=== PATIENT | male | born 1955 | race Caucasian/White ===

== ENCOUNTER → 2021-03-08 00:14 | Outpatient (CLI) | payer MEDICARE, SELFPAY ==
[2021-03-08 13:04] LABS: SARS-CoV-2 RNA PCR Negative
== END ==
PROVIDERS: PCP Internal Medicine Infectious Disease; Visit Provider Otolaryngology
DX: Z01.812 Encounter for preprocedural laboratory examination (principal); Z20.822 Contact with and (suspected) exposure to COVID-19
CPT/HCPCS: C9803; U0003; U0005

== ENCOUNTER 2021-03-11 01:09 | Day surgery (SDC) | payer MEDICARE, SELFPAY ==
--- NOTE | 2021-03-03 15:32 | PC.NURSE ---
Report to the Outpatient Waiting Room, entrance under the green pavilion located off [facility], at time __0600 on date ___03/11/21____. OR Time: . - You and your visitor will be asked a series of questions to screen for COVID 19 for your protection. - A mask is required within the hospital. - Only one visitor is allowed at this time. Patient visitors will be guided where to wait when not with patient. Preoperative COVID Testing Requirements: No COVID Test needed if: (proof is required; if not received patient will have Rapid Test prior to entry) - Patient has received COVID Vaccine at least 14 days prior to procedure date or - Patient has positive COVID test result within last 90 days of surgery date. COVID TESTING 03/08/21 AT 0935 COVID Test needed if above criteria is not met If not COVID vaccinated a COVID test must be conducted within 72 hours of surgery and patient is asked to isolate self from time of testing until procedure. You will go to the [facility] for your COVID testing. The [facility] site is located at the corner of [address] [facility]. You will only be called if COVID results are positive and your surgeon may reschedule your elective surgery date. Patients may have clear liquids (water, carbonated beverages, clear teas, apple juice) until 3 hours prior to surgery with a maximum of 20 ounces. - No food from midnight until time of surgery - Infants may have breast milk until 4 hours before surgery, infant formula 6 hours prior to surgery. - Children will be allowed to drink immediately following surgery. If applicable, please bring a bottle or sippy cup to assist with drinking. Juice, water, soda, and popsicles are readily available. For infants on formula, please bring formula the day of surgery. Pacifiers are allowed. Take the following medications with a SIP of water the morning of surgery: __AMLODIPINE Medications to discontinue per physician ____ASPIRIN PER DR MILLS Date to take last dose Please no make-up, nail [facility] [place], hairspray, perfume, deodorant, or body powder the day of surgery. No jewelry (including any body piercings) or valuables the day of surgery, leave them at home. Please take a shower or bath the night before, or the morning of, surgery with an antibacterial soap. Wear comfortable, loose fitting clothing. Children are encouraged to wear pajamas. - Jewelry must be removed prior to entering the operating room. Rings and piercings that are not removed may be cut off. - The hospital will not accept responsibility for valuables. - Please leave all valuables, including medications, at home the day of surgery. If you are going home after surgery, a licensed deliver driver must drive you home. - NO public transportation without another adult. - We recommend that an adult stay with you for 24 hours following discharge. - We also recommend that you do not drive, make important decision, drink alcoholic beverages, or take any drugs that were not prescribed by your health care provider for at least 24 hours after your discharge time. For Pediatric surgeries, we recommend two adults accompany the child home (only one inside the building at this time). Follow any additional instructions given to you from your surgeon. Telephone instructions given to ___PATIENT and asked if any additional questions and then verbalized understanding. Patient advised to call surgeon office or pre surgery nurse liaison [phone] if any additional questions.
[2021-03-03 15:44] VITALS: BMI 34.9
--- NOTE | 2021-03-10 16:46 | PM.IMHP ---
H&P: HPI History of Present Illness Date/Time: 03/10/21 16:46 Chief Complaint: Nasal polyps chronic sinusitis acute sinusitis septal deviation inferior turbinate hypertrophy nasal obstruction nasal congestion Narrative: patient presents for planned surgical procedures no change in symptoms no change in history Review of Systems Constitutional: Constitutional: Denies fatigue, Denies fever(s) and Denies lethargy Eyes: Eyes: Denies blurry vision and Denies change in vision ENT: Reports as per HPI Cardiovascular: Cardiovascular: Denies chest pain Respiratory: Respiratory: Denies cough Endocrine: Endocrine: Denies fatigue Hematologic/Lymphatic: Hematologic/Lymphatic: Denies easy bleeding, Denies easy bruising and Denies lymphadenopathy Allergic/Immunologic: Allergic/Immunologic: Denies seasonal rhinorrhea [facility] Past Medical History Medical History Heart disease Pacemaker Surgical History Surgical History Hx of adenoidectomy Family History Family History Father Hypertension Heart disease Social History Social History Smoking packs per day: 1 Smoking cigarettes per day: 20.0 Years smoked: 30 Smoking pack-years: 30.00 Smoking status: Former smoker Tobacco type: cigarettes Smoking end date: 02/08/05 Alcohol intake: current Drinks per week: 21 Substance use: never Spiritual care concerns: No Meds Home Medications and Allergies Home Medications Medication Instructions Recorded Confirmed Type amlodipine 5 mg tablet 5 mg PO DAILY 11/28/20 03/03/21 History aspirin 81 mg tablet,delayed 81 mg PO DAILY 11/28/20 03/03/21 History release losartan 100 mg tablet 100 mg PO DAILY 11/28/20 03/03/21 History omeprazole 20 mg capsule,delayed 20 mg PO DAILY 11/28/20 03/03/21 History release methylprednisolone 4 mg tablets in See Rx Instructions PO PER PKG DIR 03/05/21 Rx a dose pack #21 ea Allergies Allergy/AdvReac Type Severity Reaction Status Date / Time No Known Allergies Allergy Verified 03/03/21 15:16 Exam Const: General: cooperative, healthy appearing, comfortable, well developed and alert HENMT: Head: normal to inspection, normocephalic and atraumatic Ears: hearing grossly normal bilaterally, external ears normal, TM's normal bilaterally and EAC's normal General nose exam: Normal external nose present, Normal nares present, No nasal polyps present and Other nasal findings present ( turbinate hypertrophy septal deviation) Face and sinus: normal facial exam Mouth: Yes Normal oral and palatal mucosa present, Yes lip normal, Yes tongue normal, Yes oropharynx normal and Yes moist mucous membranes Teeth and gingiva: dentition normal and gingiva normal Throat: posterior oropharynx normal, tonsils normal and uvula midline Eyes: General: appearance normal, both eyes and all related structures Periorbital: periorbital findings normal Eyelids: eyelids normal Conjunctivae: conjunctivae normal Sclera: sclerae normal Neck: Neck: normal visual inspection, full ROM and no lymphadenopathy Thyroid: thyroid normal Lymphatic: no lymphadenopathy noted Resp: Effort & Inspection: normal respiratory effort and able to speak in complete sentences Cardio: Jugular venous distension: no JVD Neuro: Cranial nerves: Yes CN's II-XII intact bilaterally Assessment and Plan Assessment and plan (1) Chronic sinusitis: Code(s): J32.9 - Chronic sinusitis, unspecified Status: Acute Assessment and Plan: plan is for the operating image guided bilateral maxillary antrostomies image guided bilateral anterior ethmoidectomies image guided bilateral frontal sinusotomies endoscopic assisted septoplasty inferior turbinate reduction with outfracture. w
[2021-03-11] VITALS (9 sets, daily range): BP systolic 138–174; BP diastolic 80–110; PULSE 67–86; RESP 12–16; TEMP 36.1–36.2; O2SAT 96–100
[2021-03-11] MEDS: ACETAMINOPHEN 500 MG TABLET 1000 MG PO (06:17)
--- NOTE | 2021-03-11 06:48 | P.PNAN_ITS ---
Anes - Initial Pre Proc Eval Procedure: Operation Date: 03/11/21 07:30 Proposed Procedures p Image Guided Bilateral Maxillary Antrostomy, Bilateral Anterior Ethmoidectomy, Bilateral Frontal Sinusotomy, Bilateral Inferior Turbinectomy with Outfracture, - Roger Sage MD s Endoscopic Septoplasty - Roger Sage MD Date/Time: 03/11/21 06:48 Surgeon: Roger Sage MD Pre Op Diagnosis: chronic sinusitis Patient Data Age: 65 Gender: M Height: 1.75 m Weight: 108.3 kg Last Vital Signs Temp 36.2 C L 03/11/21 06:26 Pulse 85 03/11/21 06:26 Resp 16 03/11/21 06:26 BP 164/101 H 03/11/21 06:26 Pulse Ox 97 03/11/21 06:26 Allergies Allergy/AdvReac Type Severity Reaction Status Date / Time No Known Allergies Allergy Verified 03/11/21 06:07 Home Medications Medication Instructions Recorded Confirmed Type amlodipine 5 mg tablet 5 mg PO DAILY 11/28/20 03/11/21 History aspirin 81 mg tablet,delayed 81 mg PO DAILY 11/28/20 03/11/21 History release losartan 100 mg tablet 100 mg PO DAILY 11/28/20 03/11/21 History omeprazole 20 mg capsule,delayed 20 mg PO DAILY 11/28/20 03/11/21 History release Patient hx anesthesia problems: none Family hx anesthesia problems: none Results Review: All pre-operative results and documents have been reviewed as part of the pre-operative evaluation. [facility] Past Medical History Medical History (Updated 03/11/21 @ 06:48 by Capo Merchant MD) Heart disease Obesity Pacemaker Surgical History Surgical History Hx of adenoidectomy Family History Family History Father Hypertension Heart disease Social History Social History Smoking packs per day: 1 Smoking cigarettes per day: 20.0 Years smoked: 30 Smoking pack-years: 30.00 Smoking status: Former smoker Tobacco type: cigarettes Smoking end date: 02/08/05 Alcohol intake: current Drinks per week: 21 Substance use: never Living arrangements: with family Spiritual care concerns: No Anes - Eval Final PreProcedure Day of Procedure 03/11/21 06:48 Patient weight: obese Heart: regular rate and rhythm Lungs: clear to auscultation Airway: Mallampati scale class II Neurological: alert and oriented Last oral intake: >/= 8 hours ASA classification: III Emergent: no Anesthetic plan: proceed Anesthesia type and monitoring: general ETT and standard monitoring Results Review: All pre-operative results and documents have been reviewed as part of the pre-operative evaluation. Informed Consent: The patient's anesthetic plan and its attendant risks and benefits were discussed with the patient/family/POA. Questions were solicited and answers provided to the satisfaction of the patient/family/POA.
--- NOTE | 2021-03-11 07:18 | WPDHPUPDATE1 ---
History and Physical Update Update Date/Time: 03/11/21 07:18 History and Physical has been reviewed, including an updated exam of the patient. There are NO changes in the patient's condition. Risks, benefits, and alternatives have been discussed and questions answered. Patient agrees to proceed with procedure.
[2021-03-11] MEDS: LACTATED RINGERS 1,000 ML 30 ML IV CONT ×2 (07:24→09:46)
[2021-03-11] MEDS: ceFAZolin 2 GM/D5W 50 ML 2 GM/50 ML BAG IVPB (07:26)
[2021-03-11] MEDS: OXYMETAZOLINE HCL 0.05% NAS 15 ML BTL (*BKC) 1 SPRAY NASAL (07:53)
[2021-03-11] MEDS: MUPIROCIN 2% OINT 22 GM TUBE 1 APPLIC EACH NARE (09:21)
[2021-03-11] MEDS: LIDO 1%/EPINEPHRINE 1:100,000 50 ML VIAL 30 ML INFILTRATE (09:22)
--- NOTE | 2021-03-11 10:11 | P.OP_ITS ---
Procedure Note - Detailed Date of Procedure 03/11/21 Pre-op Diagnosis chronic sinusitis, right septal deviation and, inferior turbinate hypertrophy, nasal obstruction, nasal congestion, nasal polyps Post-op Diagnosis same Procedure Performed Endoscopic assisted septoplasty inferior turbinate reduction submucosally with outfracture bilateral middle turbinectomy bilateral image guided endoscopic maxillary antrostomies anterior ethmoidectomies frontal sinusotomies Surgeon Roger Sage MD Anesthesia general Indications See above Findings Polypoid type edema in all of the operated sinuses grade 1 polyps in the bilateral middle meati I significant bleeding from the left artery to the inferior turbinate this was cauterized, non life-threatening bleeding get significant for sinus surgery. Septal deviation left superiorly right inferiorly straightened perforations bilaterally at none opposing turbinates well reduced. Description of Procedure Patient identified consent verified. Patient brought operating room. Time-out performed. General anesthesia induced endotracheal tube secured image guidance setup. Patient prepped and draped for the aforementioned procedure. Second time-out performed. 0 degree endoscope utilized 10 cc of local injected into the bilateral axilla bilateral inferior turbinates and bilateral submucoperichondrial planes of the nasal septum. [place] incision made on the left with 15 blade left-sided mucoperichondrial flap elevated osteotome utilized to transect septum right mucoperichondrial flap elevated deviated septum removed with Ad [place]ano forceps Enrrique forceps and osteotome perforations noted bilaterally small and non opposing. Inferior turbinates reduced in the submucosal plane using microdebrider with 2 mm blade outfractured. Maxillary antrostomies created with double ball tip probe image guidance was utilized for the entire sinus procedure. Maxillary antrostomies completed with straight through cut and backbiter as well as microdebrider. Significant bleeding was noted from the left side a small artery supplying the inferior turbinate on its descending path. This was cauterized using Bovie suction electrocautery setting of 15. The anterior ethmoidectomies were performed with [place] as well as microdebrider. The frontal sinusotomies were performed with a 70 degree endoscope as well as frontal sinus suction and frontal sinus seeker. There was moderate bleeding from the frontal sinus outflow outflow path which was controlled with the intermittent application of Afrin-soaked pledgets and some cautery of the middle turbinate stumps. Of note the bilateral middle turbinates were removed as they were both flimsy and completely engulfed with polypoid type tissue. The stumps were cauterized. Following the procedure the [place] inci frances was closed with 3 interrupted 5 0 fast gut sutures. The bilateral middle meati I were irrigated, hemostasis noted to be excellent, and they were packed with Nova pack packing. Dupree splints were covered in mupirocin and placed bilaterally as well as sutured anteriorly using 3 0 interrupted nylon suture. This marked the end of the procedure. I performed all dictated portions of the procedure. Care the patient was turned Anesthesiology. Total blood loss approximately 50-75 cc. There were no immediate complications. Estimated Blood Loss -50.0 Drains No Packing Yes (Nova pack) Pathology none sent Complications No immediate complications Condition stable Disposition PACU
[2021-03-11] MEDS: oxyCODONE HCL (*CRX) 5 MG TAB IR PO (11:15)
== END 2021-03-11 12:15 | disposition home or self-care (01) ==
PROVIDERS: PCP Internal Medicine Infectious Disease; Visit Provider Otolaryngology
PROC: (CPT 31256; principal; 2021-03-11 07:30)
PROC: (CPT 30520; 2021-03-11 07:30)
DX: J32.9 Chronic sinusitis, unspecified (principal); J34.2 Deviated nasal septum; J34.3 Hypertrophy of nasal turbinates; J34.89 Other specified disorders of nose and nasal sinuses; R09.81 Nasal congestion; J33.9 Nasal polyp, unspecified; R09.82 Postnasal drip; I51.9 Heart disease, unspecified; Z95.0 Presence of cardiac pacemaker; Z79.82 Long term (current) use of aspirin; E66.9 Obesity, unspecified; Z68.35 Body mass index [BMI] 35.0-35.9, adult; Z87.891 Personal history of nicotine dependence
CPT/HCPCS: 31256; 31254; 31276; 30130; 61782; 30520; A9270; C9803; J0330; J0690; J1100; J1170; J2250; J2370; J2405; J2704; J3010; J7120; U0003; U0005